=== PATIENT | female | born 1985 | race Caucasian/White ===

== ENCOUNTER 2016-12-13 12:27 | Inpatient (IN) | payer OTHER ==
[~2016-12-13] VITALS: Ht 162.6 cm; Wt 99.0 kg
[2016-12-13] VITALS (20 sets, daily range): BP systolic 103–150; BP diastolic 51–77
[~2016-12-13 12:27] MED LIST: /CELE20CA OR; ACET50TA PO; COLA100C2 OR; IBUP80TA PO; PERC5TAB8 OR; PRENTAB66 PO; VITAPRTA PO; [UNRECOGNIZED DRUG - CODE] PO
[2016-12-13] MEDS ORDERED: LR 1,000 ML IV SCH (13:20)
[2016-12-13] MEDS ORDERED: PENICILLIN G POTASSIUM IV 5 MU in D5W MINI-BAG PLUS 100 ML IV STA (13:20)
[2016-12-13] MEDS ORDERED: LACTATED RINGER'S 1000 ML IV STA (13:20)
[2016-12-13 14:04] LABS: MEAN CORPUSCULAR HEMOGLOBIN 32.1 pg (27.0-33.0); MEAN CORPUSCULAR HGB CONC 34.2 g/dl (32.0-36.5); WHITE BLOOD COUNT 20.2 K/mm3 (4.0-10.0)
--- NOTE | 2016-12-13 14:43 | HPEPDOC ---
Obstetrical History & Physical General Date of Admission Dec 13, 2016 at 13:17 History of Present Illness Patient is a 31-year-old female who is a at 36 weeks and 1 day gestation with an DARREL of 01/09/2017 based off of a first trimester ultrasound. [facility]. Her has been complicated with an incompetent cervix. Patient received a prophylactic cerclage at 14 weeks gestation. She has a history of a delivery at 21 weeks 6 days. Patient has also been taking Maza IM injections weekly. She presents to labor and delivery today with complaints of leaking of fluid that started at 9 AM. Reports that the fluid is clear. She denies vaginal bleeding or contractions. Reports active movement. Chief Complaint: Rupture of membranes Information Provided By: Patient Age: 31 : 7 Term: 2 Pre-term: 1 Abortions: 3 Livin Care Care: Good Care Dating Final EDC: Jan 09, 2017 Final EDC by: 1st trimester (US) EGA at Admission: 36.1 Antepartum Course Diagnos(e)s cervical insufficiency, smoker Height (inches): 64 Pre- weight (lbs.): 192 Admission Weight (lbs.): 218 Change in Weight (lbs.): 26 Past Medical History Past Obstetrical History #1: Past Obstetrical History: Multigravida Gestation: 40 Type of Delivery: Spontaneous Vaginal Del. (October 2006: Weighing 7 lbs. 6 oz.) Sex of Infant: Female Complications: No (10/13) Past Obstetrical History #2: Gestation: 39.4 Type of Delivery: Spontaneous Vaginal Del. (March 2015, 8 lbs. 15 oz.) Sex of : Male Complications: No (cerclage placed) Past Obstetrical History #3: Gestation: 21.6 Type of Delivery: Spontaneous Vaginal Del. Complications: Yes (July 2013 weighing 1 lb. 6 oz., incompetent cervix. 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 Past Medical History Surgical History: Dilation and curettage, Gallbladder, Other (cerclage) Family History Significant Family History: Diabetes, Hypertension (father) Social History Marital Status: Family situation: Spouse/partner home Psychosocial History: No pertinent psych hx * Smoker: current smoker Alcohol: denies Drugs: denies Abuse Violence Screening Have you been hit/kicked/slapp: No Have you been sexually assault: No Allergies Coded Allergies: No Known Allergies (Verified , 10/13/06) Medications Scheduled Multivit/Min/Pren/Fol Ac/Iron ( Rx) 1 Tab Tab 1 TAB PO DAILY NUTRITIONAL SUPPORT Scheduled PRN Acetaminophen (Mapap) 500 Mg Tab 1,000 MG PO Q6HP PRN PRN PAIN Physical Examination Physical Examination GENERAL: Alert and oriented times three. BREAST: . ABDOMEN: Gravid and non-tender to touch. FETUS: Is vertex (VTX) by sterile vaginal examination (SVE), fetus is vertex ( VTX) by Tyrell. HEART RATE: Regular rate and rhythm. LUNGS: Clear to auscultation (CTA). EXTREMITIES: No edema. No clonus. Deep tendon reflexes (DTRs) + 2. Vital Signs/I&O Vital Signs Label Value Date Time Patient Temperature 97.7 degrees F 12/13/16 1242 Pulse 108 12/13/16 1242 Blood Pressure Assessment 120/73 (89) 12/13/16 1242 Source Automatic Cuff (NIBP) Respiratory Rate 18 bpm 12/13/16 1242 Laboratory Data 24H LABS Laboratory Tests 2 12/13/16 13:28: Serology Scanned Report Hepatitis B Testing CBC/BMP Item Value Date Time White Blood Count 20.2 K/mm3 H 12/13/16 1353 Hemoglobin 12.2 g/dl 12/13/16 1353 Hematocrit 35.8 % L 12/13/16 1353 Platelet Count 335 k/mm3 12/13/16 1353 Pertinent Laboratoy Data Blood Type: A- RBC Antibody Screen: Negative HIV: Negative Hepatitis B: Negative Hepatitis C: Negative Rapid Plasma Reagin: Nonreactive Rubella: Immune Chlamydia/Gonorrhea: Negative Group B Streptococcus: Unknown Quad Screen Test: Declined Glucose Tolerance Test: 120 Anatomy Ultrasound Ultrasound Date: Aug 28, 2016 Placenta Location: Anterior Normal Anatomy: Yes Placenta Previa: No Vaginal Examination Dilation: 3 cm Effacement: 75% Station: -3 Cervical Consistency: Soft Cervical Position: Posterior Presentation: Cephalic presentation Position: Vertex (occiput) (membranes ruptured to a large amount of clear amniotic fluid) Assessment Heart Rate (FHR): 135 Variability: Moderate Accelerations: Positive Decelerations: None Tocometer Contractions: Yes Frequency: other (occassional) Multi-drug resistant Organism: No history of MDRO Assessment/Plan Assessment IUP at 36 weeks 1 day gestation, rupture of membranes, history of incompetent cervix with prophylactic cerclage placement, smoker, category 1 tracing Plan Admit to labor and delivery. Out of bed as tolerated, regular diet, IV per protocol, labs per order, GBS prophylaxis to be initiated. Dr. Crowe notified of cerclage placement and will be in to remove cerclage. Patient desires epidural for pain management. Consider Pitocin IV to augment labor. Anticipate cervical change and vaginal delivery. TEZ FLORES CNM Dec 13, 2016 13:45
[2016-12-13] MEDS ORDERED: OXYTOCIN DRIP 30 UNITS in APPROPRIATE DILUENT 1 EA IV SCH (15:00)
--- NOTE | 2016-12-13 15:27 | RO ---
DATE OF PROCEDURE: 12/13/2016 Selvni is a 31-year-old female who is approximately 36-1/7 weeks gestation with a history of cervical incompetence who had a cerclage placed approximately 13 weeks gestation. She presented with gross rupture of membranes. After counseling a decision was made for removal of the cerclage. PREOPERATIVE DIAGNOSES: 1. Intrauterine at 36-1/7 weeks gestation with incompetent cervix and a cerclage in place. 2. premature rupture of membrane at 9:00 a.m. clear fluid. POSTOPERATIVE DIAGNOSES: 1. Intrauterine at 36-1/7 weeks gestation with incompetent cervix and a cerclage in place. 2. premature rupture of membrane at 9:00 a.m. clear fluid. PROCEDURE: Cervical cerclage removal. SURGEON: Dr. Oscar Crowe. SEO TEAM LEAD: ANESTHESIA: COMPLICATIONS: None. FINDINGS: 1. Gross rupture of membrane, clear fluid, 2, 1 Prolene suture noted at 12 o'clock position with multiple knots. 3. After removal of the cerclage, the cervix was found to be 3 cm dilated, 60 to 70% effaced, -3, fetus in a vertex position. DESCRIPTION OF PROCEDURE: After obtaining informed consent at the patient's bedside, she was placed in dorsal lithotomy position. A speculum was placed. We then identified the Prolene suture. This was grabbed with a ring forceps and a Lyle scissors was then used to cut the cerclage. The cerclage was removed intact. After removal of the cerclage, the cervix was examined with the above-noted cervical dilatation. The patient tolerated procedure well.
[2016-12-13] MEDS: PENICILLIN G POTASSIUM IV 2.5 MU in D5W 100 ML IV SCH ×2 (17:47→21:59)
--- NOTE | 2016-12-13 22:18 | IPNPDOC ---
Obstetrical Progress Note Date of Service The patient was seen on 12/13/16 at 1940. Progress Note SUBJECTIVE: Patient reports she is comfortable. Reports she is not feeling her contractions. OBJECTIVE: heart rate baseline 135, moderate variability, positive accelerations, no decelerations. Contractions every 2-3 minutes. She is on 10 milliunits of Pitocin. Amniotic fluid still appears clear. VITAL SIGNS: Please see below. ASSESSMENT: IUP at 36 weeks 1 day gestation, PPROM, not in active labor, history of incompetent cervix PLAN: Continue with Pitocin augmentation. Patient may receive epidural when she desires. Anticipate cervical change. Anticipate vaginal delivery. Dr. Crowe aware of plan. VS, I&O, 24H, Fishbone VS, I&O, 24H, Fishbone Vital Signs Label Value Date Time Pulse 90 12/13/161915 Blood Pressure Assessment 122/72 (89) 12/13/161915 Source Automatic Cuff (NIBP) Patient Temperature 99.0 degrees F 12/13/161845 Temperature Source Tympanic 12/13/161845 Pulse 93 12/13/161845 Respiratory Rate 18 bpm 12/13/161845 Blood Pressure Assessment 123/59 (80) 12/13/161845 Source Automatic Cuff (NIBP) Pulse 83 12/13/161945 Blood Pressure Assessment 109/55 (73) 12/13/161945 Source Automatic Cuff (NIBP) TEZ FLORES CNM Dec 13, 2016 22:18
--- NOTE | 2016-12-13 22:45 | IPNPDOC ---
Obstetrical Progress Note Date of Service The patient was seen on 12/13/16 at 22:05. Progress Note SUBJECTIVE: Patient states she feels some of her contractions. Reports that they are not painful. OBJECTIVE: heart rate baseline 135, moderate variability, positive accelerations, variable decelerations noted. Contractions every 2-3 minutes. Pitocin at 16 milliunits. ASSESSMENT: IUP at 36 weeks 1 day gestation, not in active labor, PPROM, category 2 heart rate tracing PLAN: Pitocin turned on 12 milliunits. Patient repositioned to right lateral. It is a category 1 heart rate tracing. Continue to increase Pitocin if category 1 heart rate tracing. TEZ FLORES CNM Dec 13, 2016 22:45
--- NOTE | 2016-12-13 22:48 | IPNPDOC ---
Obstetrical Progress Note Date of Service The patient was seen on 12/13/16 at 22:46. Progress Note SUBJECTIVE: No concerns. OBJECTIVE: heart rate 135, moderate variability, positive accelerations, no decelerations. Contractions every 2-3 minutes. Pitocin at 12 milliunits. ASSESSMENT: IUP at 36 weeks 1 day gestation, PPROM, category 1 heart rate tracing, not in active labor. PLAN: Continue with Pitocin augmentation. Anticipate cervical change. A straight vaginal delivery. TEZ FLORES CNM Dec 13, 2016 22:48
[2016-12-14] VITALS (32 sets, daily range): BP systolic 86–156; BP diastolic 41–89
[2016-12-14] MEDS ORDERED: FENTANYL 2MCG/ML ROPIVACAINE 0.2% NACL 250 ML CADD As Ordered ONE (00:12)
[2016-12-14] MEDS ORDERED: ePHEDrine SULFATE 25 MG/5 ML(5MG/ML) SYRINGE IV PRN (01:00)
[2016-12-14] MEDS ORDERED: EPIDURAL/PCA KEYS XX PRN (01:00)
[2016-12-14] MEDS ORDERED: NALOXONE INJ 0.4 MG/1 ML VIAL (J2310) IV PRN (01:00)
[2016-12-14] MEDS ORDERED: FENTANYL/ROPIVACAINE/NACL CADD 250 ML EPIDURAL SCH (01:00)
[2016-12-14] MEDS ORDERED: LACTATED RINGER'S 1000 ML IV PRN (01:00)
[2016-12-14] MEDS ORDERED: REFRIGERATOR IV KEYS XX PRN (01:00)
[2016-12-14] MEDS ORDERED: diphenhydrAMINE INJ 50MG/ML VIAL (J1200) IV PRN (01:00)
[2016-12-14] MEDS ORDERED: EPIDURAL COMMENT XX SCH (01:00)
[2016-12-14] MEDS ORDERED: ONDANSETRON 4MG/2ML VIAL (J2405) IV PRN (01:00)
[2016-12-14] MEDS: PENICILLIN G POTASSIUM IV 2.5 MU in D5W 100 ML IV SCH (02:04)
--- NOTE | 2016-12-14 04:16 | DNPDOC ---
Delivery Note Delivery Note Patient is a 31-year-old now G 7 P 2233 at 36.2 weeks' gestation who presented to labor and delivery with PPROM. She has a history of incompetent cervix and had a cerclage placed at 13 weeks gestation. The cerclage was removed by Dr. Crowe. See operative note. She obtained an epidural for pain management. Pitocin was used to augment her labor. She progressed to fully dilated at 0229. Patient pushed to a spontaneous vaginal delivery at 0335 to a living male in the ROBERTO position with restitution to ROT. Nuchal cord 1 loose. Shoulders delivered with ease and the corpus immediately followed. Baby placed on maternal abdomen crying and active after stimulation. Cord clamped 2 and cut by followed the baby after 1 minute. Cord gases not obtained but cord blood obtained. Spontaneous delivery of intact placenta with a three-vessel cord by Kitchen mechanism at 0351. Uterine hemostasis achieved by rapid infusion of IV Pitocin and uterine fundal massage. Perineum and vagina inspected and found to intact. EBL 150. Infant's 8/10. Weight 7 lbs. 4 oz, 3298 g. 's name is Gene and is breast-feeding. Mom and baby are stable. TEZ FLORES CNM Dec 14, 2016 04:16
[2016-12-14] MEDS ORDERED: DIBUCAINE 1% OINTMENT 30GM TOP PRN (07:15)
[2016-12-14] MEDS ORDERED: ANUSOL HC CREAM 30GM TOP PRN (07:15)
[2016-12-14] MEDS ORDERED: MEASLES,MUMPS,RUBELLA VACCINE INJ (MMR-II) (90707) SC SCH (07:15)
[2016-12-14] MEDS ORDERED: IBUPROFEN 800 MG TAB PO PRN (07:15)
[2016-12-14] MEDS ORDERED: NICOTINE 14 MG/24 HR TRANSDERMAL TD PRN (07:15)
[2016-12-14] MEDS ORDERED: METHYLERGONOVINE MALEATE 0.2 MG TAB PO PRN (07:15)
[2016-12-14] MEDS ORDERED: DOCUSATE SODIUM 100 MG CAP PO PRN (07:15)
[2016-12-14] MEDS ORDERED: ACETAMINOPHEN 500 MG TAB PO PRN (07:15)
[2016-12-14] MEDS ORDERED: RHOGAM 300 MCG (1500 IU) INJ (J2790) IM SCH (07:15)
[2016-12-14] MEDS: PRENATAL VITAMIN TAB PO SCH (09:00)
[2016-12-15 06:25] VITALS: BP 129/69
[2016-12-15] MEDS ORDERED: ADACEL/BOOSTRIX VACCINE (DIPHTH/PERTUSS/ACELL/TETANUS)0.5ML SYR (90715) IM ONE (09:00)
[2016-12-15] MEDS ORDERED: INFLUENZA QUADRIVALENT PF VACCINE 0.5ML SYRINGE/VIAL (90686) IM ONE (09:00)
[2016-12-15] MEDS: PRENATAL VITAMIN TAB PO SCH (09:00)
[2016-12-15 18:24] VITALS: BP 137/70
[2016-12-16 06:11] VITALS: BP 134/75
[2016-12-16] MEDS: PRENATAL VITAMIN TAB PO SCH (09:00)
[2016-12-16] MEDS ORDERED: IBUP-1114 PO (11:43)
[2016-12-16] MEDS ORDERED: NICO14DI3 TD (11:44)
== END 2016-12-16 12:15 | disposition home or self-care (01) | DRG 560 ==
LOC: M LDO 12:27 → M LDI 13:17 → M OBS 12-14 05:44
PROVIDERS: ADMIT Obstetrics & Gynecology; ATTEND Obstetrics & Gynecology
PROC: 0UCC7ZZ Extirpation of Matter from Cervix, Via Natural or Artificial Opening (ICD-10-PCS; 2016-12-13)
PROC: 10E0XZZ Delivery of Products of Conception, External Approach (ICD-10-PCS; principal; 2016-12-14)
DX: O42.013 Preterm premature rupture of membranes, onset of labor within 24 hours of rupture, third trimester (principal); O34.33 Maternal care for cervical incompetence, third trimester; Z37.0 Single live birth; Z3A.36 36 weeks gestation of pregnancy; F17.200 Nicotine dependence, unspecified, uncomplicated; O99.334 Smoking (tobacco) complicating childbirth; O69.82X0 Labor and delivery complicated by other cord entanglement, without compression, not applicable or unspecified

== ENCOUNTER → 2018-04-08 | Outpatient (CLI) | payer OTHER ==
[2018-04-08 18:45] LABS: BASO # 0.1 10^3/uL (0.0-0.2); BASO % 0.5 % (0.0-1.0); EOS # 0.3 10^3/uL (0.0-0.50); EOS % 1.6 % (0.0-3.0); HEMATOCRIT 39.8 % (36.0-47.0); HEMOGLOBIN 13.6 g/dl (12.0-15.5); IMMATURE GRANULOCYTE % 0.5 % (0-3.0); LYMPH # 3.1 10^3/uL (1.5-4.5); LYMPH % 18.6 % (24.0-44.0); MEAN CORPUSCULAR HEMOGLOBIN 32.2 pg (27.0-33.0); MEAN CORPUSCULAR HGB CONC 34.2 g/dl (32.0-36.5); MEAN CORPUSCULAR VOLUME 94.1 fl (80.0-96.0); NEUTROPHILS # 12.2 10^3/uL (1.8-7.7); NEUTROPHILS % 72.8 % (36.0-66.0); PLATELET COUNT, AUTOMATED 236 10^3/uL (150-450); RED BLOOD COUNT 4.23 10^6/uL (4.00-5.40); RED CELL DISTRIBUTION WIDTH 13.6 % (11.5-14.5); WHITE BLOOD COUNT 16.8 10^3/uL (4.0-10.0)
[2018-04-08 19:40] LABS: CHLAMYDIA DNA AMPLIFICATION NEGATIVE (NEGATIVE); GC DNA AMPLIFICATION NEGATIVE (NEGATIVE)
[2018-04-11 11:08] LABS: RUBELLA IgG QUALITATIVE IMMUNE (IMMUNE)
[2018-04-11 11:10] LABS: HBsAg Prenatal NEGATIVE (NEGATIVE)
[2018-04-11 11:37] LABS: HEPATITIS C VIRUS ABY INDEX < 0.0 INDEX (<0.8)
[2018-04-11 11:37] LABS: HIV 1&2 SCREEN CENTAUR NEGATIVE (NEGATIVE)
== END ==
LOC: M SMT 11:29
DX: Z36.89 Encounter for other specified antenatal screening (principal); Z3A.09 9 weeks gestation of pregnancy
CPT/HCPCS: 86762

== ENCOUNTER → 2018-04-12 | Outpatient (REF) | payer OTHER | LOC: M LAB REF 17:01 | DX: Z34.81 Encounter for supervision of other normal pregnancy, first trimester (principal) ==

== ENCOUNTER → 2018-04-19 | Day surgery (SDC) | payer OTHER ==
[~2018-04-19] MED LIST changes: -/CELE20CA OR; -ACET50TA PO; +BUPIVACAINE/DEXTROSE 0.75% 2 ML AMP As Ordered; +CHLOROPROCAINE 2 % INJ PRES.FREE 20 ML VIAL (J2400) As Ordered; -COLA100C2 OR; -IBUP80TA PO; +LR 1,000 ML IV; +ONDANSETRON 4MG/2ML VIAL (J2405) As Ordered; +ONDANSETRON 4MG/2ML VIAL (J2405) IV; -PERC5TAB8 OR; -PRENTAB66 PO; -VITAPRTA PO; -[UNRECOGNIZED DRUG - CODE] PO; +fentaNYL 100 MCG/2 ML INJECTION (J3010) As Ordered
[2018-04-19] MEDS: LR 1,000 ML IV (11:36)
[2018-04-19 11:46] LABS: HEMATOCRIT 37.4 % (36.0-47.0); HEMOGLOBIN 13.1 g/dl (12.0-15.5); MEAN CORPUSCULAR HEMOGLOBIN 32.2 pg (27.0-33.0); MEAN CORPUSCULAR VOLUME 91.9 fl (80.0-96.0); PLATELET COUNT, AUTOMATED 229 10^3/uL (150-450); RED BLOOD COUNT 4.07 10^6/uL (4.00-5.40); RED CELL DISTRIBUTION WIDTH 13.4 % (11.5-14.5); WHITE BLOOD COUNT 17.7 10^3/uL (4.0-10.0)
[2018-04-19] MEDS: ceFAZolin 2 GM/D5W 50 ML IV BAG (J0690 PER 500MG) As Ordered (13:21)
== END | disposition home or self-care (01) ==
LOC: M SDC 11:11
DX: O34.32 Maternal care for cervical incompetence, second trimester (principal); Z3A.14 14 weeks gestation of pregnancy
CPT/HCPCS: 59320

== ENCOUNTER → 2018-05-18 | Outpatient (CLI) | payer OTHER | LOC: M RAD 10:25 | DX: Z34.82 Encounter for supervision of other normal pregnancy, second trimester (principal); Z36.89 Encounter for other specified antenatal screening; Z3A.18 18 weeks gestation of pregnancy | CPT/HCPCS: 76811 ==

== ENCOUNTER → 2018-08-22 | Outpatient (CLI) | payer OTHER ==
[2018-08-22 13:15] LABS: HEMATOCRIT 35.5 % (36.0-47.0); MEAN CORPUSCULAR HEMOGLOBIN 32.7 pg (27.0-33.0); MEAN CORPUSCULAR HGB CONC 33.8 g/dl (32.0-36.5); MEAN CORPUSCULAR VOLUME 96.7 fl (80.0-96.0); PLATELET COUNT, AUTOMATED 185 10^3/uL (150-450); RED BLOOD COUNT 3.67 10^6/uL (4.00-5.40); RED CELL DISTRIBUTION WIDTH 13.6 % (11.5-14.5); WHITE BLOOD COUNT 15.6 10^3/uL (4.0-10.0)
[2018-08-22 13:56] LABS: GLUCOSE CHALLENGE TEST 1 HOUR 134 MG/DL (LESS THAN 140)
[2018-08-23 08:45] LABS: TYPE AND SCREEN 1 1
== END ==
LOC: M SMT 10:03
DX: Z34.82 Encounter for supervision of other normal pregnancy, second trimester (principal)
CPT/HCPCS: 82950

== ENCOUNTER → 2018-09-26 | Outpatient (REF) | payer OTHER | LOC: M LAB REF 17:12 | DX: Z34.83 Encounter for supervision of other normal pregnancy, third trimester (principal); Z3A.00 Weeks of gestation of pregnancy not specified | CPT/HCPCS: 87186 ==

== ENCOUNTER 2018-10-06 17:42 | Inpatient (IN) | payer OTHER ==
[2018-10-06] MEDS ORDERED: LACTATED RINGER'S 1000 ML IV (18:43)
[2018-10-06] MEDS ORDERED: LR 1,000 ML IV ×2 (18:43)
[2018-10-06] MEDS: PENICILLIN G POTASSIUM IV 5 MU in D5W MINI-BAG PLUS 100 ML IV (19:10)
[2018-10-06 19:48] LABS: HEMATOCRIT 38.6 % (36.0-47.0); MEAN CORPUSCULAR HEMOGLOBIN 32.2 pg (27.0-33.0); MEAN CORPUSCULAR HGB CONC 33.7 g/dl (32.0-36.5); MEAN CORPUSCULAR VOLUME 95.5 fl (80.0-96.0); PLATELET COUNT, AUTOMATED 205 10^3/uL (150-450); RED BLOOD COUNT 4.04 10^6/uL (4.00-5.40); RED CELL DISTRIBUTION WIDTH 13.7 % (11.5-14.5); WHITE BLOOD COUNT 17.8 10^3/uL (4.0-10.0)
[2018-10-07] MEDS: OXYTOCIN DRIP 30 UNITS in APPROPRIATE DILUENT 1 EA IV ×2 (01:08→02:50)
[2018-10-07] MEDS: PENICILLIN G POTASSIUM IV 2.5 MU in APPROPRIATE DILUENT 1 EA IV (01:27)
[2018-10-07] MEDS ORDERED: FENTANYL 2MCG/ML ROPIVACAINE 0.2% IN 0.9% NACL 200ML IVBAG As Ordered (01:48)
[2018-10-07] MEDS ORDERED: diphenhydrAMINE INJ 50MG/ML VIAL (J1200) IV (02:00)
[2018-10-07] MEDS ORDERED: NALOXONE INJ 0.4 MG/1 ML VIAL (J2310) IV (02:00)
[2018-10-07] MEDS ORDERED: FENTANYL/ROPIVACAINE/NACL BAG 200 ML EPIDURAL (02:00)
[2018-10-07] MEDS ORDERED: LACTATED RINGER'S 1000 ML IV (02:00)
[2018-10-07] MEDS ORDERED: EPIDURAL COMMENT XX (02:00)
[2018-10-07] MEDS ORDERED: REFRIGERATOR IV KEYS XX (02:00)
[2018-10-07] MEDS ORDERED: ONDANSETRON 4MG/2ML VIAL (J2405) IV (02:00)
[2018-10-07] MEDS ORDERED: ePHEDrine SULFATE 25 MG/5 ML(5MG/ML) SYRINGE IV (02:00)
[2018-10-07] MEDS ORDERED: EPIDURAL/PCA KEYS XX (02:00)
[2018-10-07] MEDS ORDERED: METHYLERGONOVINE MALEATE 0.2 MG TAB PO (04:15)
[2018-10-07] MEDS ORDERED: DOCUSATE SODIUM 100 MG CAP PO (04:15)
[2018-10-07] MEDS ORDERED: IBUPROFEN 800 MG TAB PO (04:15)
[2018-10-07] MEDS ORDERED: MEASLES,MUMPS,RUBELLA VACCINE INJ (MMR-II) (90707) SC (04:15)
[2018-10-07] MEDS ORDERED: ACETAMINOPHEN 500 MG TAB PO (04:15)
[2018-10-07] MEDS ORDERED: RHOGAM 300 MCG (1500 IU) INJ (J2790) IM (04:15)
[2018-10-07] MEDS ORDERED: DIBUCAINE 1% OINTMENT 30GM TOP (04:15)
[2018-10-07] MEDS: AMPICILLIN SOD/SULBACTAM SOD 3 GM in D5W MINI-BAG PLUS 100 ML IV (04:55)
[2018-10-07] MEDS: SLF 3 ML SYR IV (07:30)
[2018-10-07] MEDS: PRENATAL VITAMINS CHEWABLE TABLET PO (09:29)
[2018-10-07] MEDS ORDERED: SLF 3 ML SYR IV (14:00)
[2018-10-08] MEDS: PRENATAL VITAMINS CHEWABLE TABLET PO (09:39)
== END 2018-10-08 12:05 | disposition home or self-care (01) | DRG 541 ==
LOC: M LDO 17:42 → M LDI 18:23 → M OBS 10-07 09:30
PROVIDERS: Advanced Practice Midwife
PROC: 10E0XZZ Delivery of Products of Conception, External Approach (ICD-10-PCS; principal; 2018-10-07)
PROC: 10D17Z9 Manual Extraction of Products of Conception, Retained, Via Natural or Artificial Opening (ICD-10-PCS; 2018-10-07)
DX: O42.02 Full-term premature rupture of membranes, onset of labor within 24 hours of rupture (principal); O99.820 Streptococcus B carrier state complicating pregnancy; Z3A.38 38 weeks gestation of pregnancy; Z37.0 Single live birth; O73.0 Retained placenta without hemorrhage

== ENCOUNTER → 2018-12-30 | Outpatient (REF) | payer OTHER ==
[~2018-12-30] MED LIST changes: +/CELE20CA OR; -BUPIVACAINE/DEXTROSE 0.75% 2 ML AMP As Ordered; -CHLOROPROCAINE 2 % INJ PRES.FREE 20 ML VIAL (J2400) As Ordered; +CLEO300C2 PO; +COLA100C2 OR; +IBUP-1114 PO; +IBUP80TA PO; -LR 1,000 ML IV; +MAPA500T2 PO; +NICO14DI3 TD; -ONDANSETRON 4MG/2ML VIAL (J2405) As Ordered; -ONDANSETRON 4MG/2ML VIAL (J2405) IV; +PERC5TAB8 OR; +PRENTAB66 PO; +VITAPRTA PO; +[UNRECOGNIZED DRUG - CODE] PO; -fentaNYL 100 MCG/2 ML INJECTION (J3010) As Ordered
[2019-01-03 16:39] LABS: HPV HYBRID CAPTURE II Negative (Negative)
== END ==
LOC: M LAB REF 17:13
PROVIDERS: ATTEND Advanced Practice Midwife
DX: Z12.4 Encounter for screening for malignant neoplasm of cervix (principal); Z11.51 Encounter for screening for human papillomavirus (HPV)

== ENCOUNTER → 2019-11-29 | Outpatient (REF) | payer OTHER ==
[~2019-11-29] MED LIST changes: -/CELE20CA OR; +CELE1CAP4 OR
[2019-11-29 17:57] LABS: APPEARANCE, URINE HAZY (CLEAR); BACTERIA, URINE AUTO 1+ (NEGATIVE); BILIRUBIN, URINE AUTO NEGATIVE (NEGATIVE); BLOOD, URINE BLOOD 1+ (NEGATIVE); COLOR, URINE YELLOW (YELLOW); GLUCOSE, URINE (UA) AUTO NEGATIVE (NEGATIVE); KETONE, URINE AUTO NEGATIVE (NEGATIVE); LEUKOCYTE ESTERASE, URINE AUTO NEGATIVE (NEGATIVE); MUCUS, URINE SMALL (NEGATIVE); NITRITE, URINE AUTO NEGATIVE (NEGATIVE); PROTEIN, URINE AUTO 1+ mg/dL (NEGATIVE); RBC, URINE AUTO 6 /HPF (0-3); SPECIFIC GRAVITY URINE AUTO 1.014 (1.002-1.035); SQUAMOUS EPITHELIAL CELL UR AU 2 /HPF (0-6); WBC, URINE AUTO 1 /HPF (0-3)
== END ==
LOC: M LAB REF 16:38
PROVIDERS: ATTEND Physician Assistant Medical
DX: N39.0 Urinary tract infection, site not specified (principal)

== ENCOUNTER 2020-10-07 20:54 | Emergency (ER) | payer OTHER ==
[~2020-10-07] VITALS: Ht 162.6 cm; Wt 93.1 kg
[2020-10-07 20:54] VITALS: BP 128/85
[2020-10-07] MEDS ORDERED: AMPICILLIN SOD/SULBACTAM SOD 3 GM in D5W MINI-BAG PLUS 100 ML IV ONE (22:00)
[2020-10-07] MEDS ORDERED: dexameTHASONE 20MG/5ML VIAL (J1100 PER 1MG) IV ONE (22:00)
[2020-10-07] MEDS ORDERED: NS 1,000 ML IV ONE (22:00)
[2020-10-07 22:52] LABS: HEMATOCRIT 44.9 % (36.0-47.0); HEMOGLOBIN 14.8 g/dl (12.0-15.5); MEAN CORPUSCULAR HEMOGLOBIN 30.1 pg (27.0-33.0); MEAN CORPUSCULAR VOLUME 91.3 fl (80.0-96.0); PLATELET COUNT, AUTOMATED 255 10^3/uL (150-450); RED BLOOD COUNT 4.92 10^6/uL (4.00-5.40); WHITE BLOOD COUNT 18.4 10^3/uL (4.0-10.0)
[2020-10-07 23:24] LABS: ATYPICAL LYMPH 5 % (0-5); EOSINOPHILS 2 % (0-3); LYMPHOCYTES 20 % (16-44); MONOCYTES 3 % (0-5); NEUTROPHILS 70 % (28-66); PLATELET ESTIMATE NORMAL (NORMAL)
[2020-10-07 23:25] LABS: ERYTHROCYTE SEDIMENTATION RATE 6 mm/hr (0-20)
[2020-10-07 23:32] LABS: ALBUMIN 3.9 GM/DL (3.2-5.2); ALT/SGPT 19 U/L (12-78); BILIRUBIN,DIRECT 0.1 MG/DL (0.0-0.2); BILIRUBIN,TOTAL 0.5 MG/DL (0.2-1.0); BLOOD UREA NITROGEN 6 MG/DL (7-18); C REACTIVE PROTEIN QUANTITATIV 1.59 MG/DL (0.00-0.30); CALCIUM LEVEL 8.4 MG/DL (8.5-10.1); CARBON DIOXIDE LEVEL 23 MEQ/L (21-32); CHLORIDE LEVEL 106 MEQ/L (98-107); CREATININE FOR GFR 0.69 MG/DL (0.55-1.30); GLOMERULAR FILTRATION RATE > 60.0 (>60); GLUCOSE, FASTING 75 MG/DL (70-100); POTASSIUM SERUM 4.2 MEQ/L (3.5-5.1); SODIUM LEVEL 135 MEQ/L (136-145); TOTAL PROTEIN 7.2 GM/DL (6.4-8.2)
[2020-10-07 23:36] LABS: HCG, SERUM QUALITATIVE NEGATIVE (NEGATIVE)
[2020-10-07] MEDS ORDERED: ISOVUE-370 76% 100ML VIAL As Ordered ONE (23:41)
--- NOTE | 2020-10-08 00:14 | REPVR ---
PROCEDURE INFORMATION: Exam: CT Neck With Contrast Exam date and time: 10/07/2020 11:54 PM Age: 34 years old Clinical indication: Mass, lump, or swelling in neck; Neck pain; Additional info: Swelling/pain right mastoid into right neck TECHNIQUE: Imaging protocol: Computed tomography images of the neck with intravenous contrast. Radiation optimization: All CT scans at this facility use at least one of these dose optimization techniques: automated exposure control; mA and/or kV adjustment per patient size (includes targeted exams where dose is matched to clinical indication); or iterative reconstruction. Contrast material: ISOVUE 370; Contrast volume: 75 ml; Contrast route: INTRAVENOUS (IV); COMPARISON: No relevant prior studies available. FINDINGS: Mastoid air cells: Small amount of fluid in the mastoid air cells, greater on the right. Auditory system: There is soft tissue edema in the right external ear extending into the right external auditory canal. Small amount of fluid in the left middle ear. Nasopharynx: Unremarkable. Oropharynx: Unremarkable. No significant tonsillar enlargement. Hypopharynx: Unremarkable. Larynx: Unremarkable. Normal epiglottis. Retropharyngeal space: Unremarkable. Submandibular/Parotid glands: Normal. Glands are normal in size. Thyroid: Normal. No enlarged or calcified nodules. Lymph nodes: Mildly enlarged cervical lymph nodes are noted. Trachea: Visualized trachea is unremarkable. Lungs: Unremarkable as visualized. Bones/joints: Unremarkable. No acute fracture. Soft tissues: No neck mass or abscess. IMPRESSION: 1. Right otitis externa with soft tissue swelling in the right external ear and external auditory canal. Possible right otitis media with a small amount of fluid in the right middle ear. 2. Small amount of fluid in the mastoid air cells. No destructive changes to suggest mastoiditis. Electronically signed by: Luis Warner On 10/08/2020 00:14:49 AM
[2020-10-08] MEDS ORDERED: HYDR-3713 PO (01:30)
[2020-10-08] MEDS ORDERED: CEFD300CAP PO (01:30)
[2020-10-08] MEDS ORDERED: CIPROFLOXACIN HC OTIC SUSPENSION AD ONE (01:30)
[2020-10-08] MEDS ORDERED: PRED20TA PO (01:30)
[2020-10-08] MEDS ORDERED: CIPRHCOTIC AD (01:30)
== END 2020-10-08 01:55 | disposition home or self-care (01) ==
LOC: M ED 20:54
DX: H66.013 Acute suppurative otitis media with spontaneous rupture of ear drum, bilateral (principal); H60.311 Diffuse otitis externa, right ear; R50.9 Fever, unspecified; J02.9 Acute pharyngitis, unspecified; Z79.899 Other long term (current) drug therapy
CPT/HCPCS: 70491; 80048; 80076; 83605; 84703; 85025; 85652; 86140; 87040; 96365; 96366; 96375; 99283; J1100; Q9967

== ENCOUNTER 2023-02-03 12:02 | Emergency (ER) | payer OTHER ==
[~2023-02-03] VITALS: Ht 162.6 cm; Wt 80.4 kg
[~2023-02-03 12:02] MED LIST changes: +CEFD300CAP PO; +CIPRHCOTIC AD; +HYDR-3713 PO; +PRED20TA PO
[2023-02-03 13:26] LABS: BASO # 0.1 10^3/uL (0.0-0.2); BASO % 0.9 % (0.0-1.0); EOS # 0.3 10^3/uL (0.0-0.5); EOS % 3.2 % (0.0-3.0); HEMOGLOBIN 15.9 g/dl (12.0-15.5); LYMPH % 37.5 % (24.0-44.0); MEAN CORPUSCULAR HEMOGLOBIN 32.1 pg (27.0-33.0); MEAN CORPUSCULAR HGB CONC 33.8 g/dl (32.0-36.5); MEAN CORPUSCULAR VOLUME 94.8 fl (80.0-96.0); MONO # 0.9 10^3/uL (0.0-0.8); MONO % 11.7 % (2.0-8.0); NEUTROPHILS # 3.7 10^3/uL (1.5-8.5); NEUTROPHILS % 46.6 % (36.0-66.0); PLATELET COUNT, AUTOMATED 246 10^3/uL (150-450); RED BLOOD COUNT 4.96 10^6/uL (4.00-5.40); WHITE BLOOD COUNT 7.9 10^3/uL (4.0-10.0)
[2023-02-03 13:48] LABS: CPK CREATINE PHOSPHOKINASE 64 U/L (34-145)
[2023-02-03 13:49] LABS: BLOOD UREA NITROGEN 7 MG/DL (9-23); CALCIUM LEVEL 9.1 MG/DL (8.5-10.1); CARBON DIOXIDE LEVEL 25 MMOL/L (20-31); CHLORIDE LEVEL 106 MMOL/L (98-107); CK-MB VALUE MASS < 1.0 NG/ML (<3.6); CREATININE FOR GFR 0.56 MG/DL (0.55-1.30); GLOMERULAR FILTRATION RATE > 60.0 (>60); GLUCOSE, FASTING 75 MG/DL (60-100); HCG, SERUM QUALITATIVE NEGATIVE (NEGATIVE); MB/CK RELATIVE INDEX 1.56 (< OR =4); POTASSIUM SERUM 3.8 MMOL/L (3.5-5.1); SODIUM LEVEL 140 MMOL/L (136-145)
[2023-02-03] MEDS ORDERED: CYCL-707 PO (14:25)
[2023-02-03] MEDS ORDERED: NAPR-837 PO (14:25)
[2023-02-03 14:51] VITALS: BP 146/88
== END 2023-02-03 15:07 | disposition home or self-care (01) ==
LOC: M ED 12:02
DX: M62.838 Other muscle spasm (principal); F17.200 Nicotine dependence, unspecified, uncomplicated; Z79.899 Other long term (current) drug therapy

== ENCOUNTER 2023-03-12 09:59 | Emergency (ER) | payer OTHER ==
[~2023-03-12] VITALS: Ht 162.6 cm; Wt 81.3 kg
[~2023-03-12 09:59] MED LIST changes: +CYCL-707 PO; +NAPR-837 PO
[2023-03-12 10:45] LABS: APPEARANCE, URINE CLEAR (CLEAR); BACTERIA, URINE AUTO 1+ (NEGATIVE); BILIRUBIN, URINE AUTO NEGATIVE (NEGATIVE); BLOOD, URINE BLOOD 2+ (NEGATIVE); COLOR, URINE YELLOW (YELLOW); GLUCOSE, URINE (UA) AUTO NEGATIVE (NEGATIVE); KETONE, URINE AUTO NEGATIVE (NEGATIVE); LEUKOCYTE ESTERASE, URINE AUTO TRACE (NEGATIVE); NITRITE, URINE AUTO NEGATIVE (NEGATIVE); PROTEIN, URINE AUTO NEGATIVE (NEGATIVE); RBC, URINE AUTO 4 /HPF (0-3); SPECIFIC GRAVITY URINE AUTO 1.011 (1.002-1.035); SQUAMOUS EPITHELIAL CELL UR AU 4 /HPF (0-6); WBC, URINE AUTO 2 /HPF (0-3)
[2023-03-12 12:07] LABS: BASO # 0.1 10^3/uL (0.0-0.2); BASO % 0.9 % (0.0-1.0); EOS # 0.2 10^3/uL (0.0-0.5); EOS % 1.4 % (0.0-3.0); HEMOGLOBIN 15.7 g/dl (12.0-15.5); LYMPH # 2.2 10^3/uL (1.5-5.0); LYMPH % 20.6 % (24.0-44.0); MEAN CORPUSCULAR HEMOGLOBIN 32.2 pg (27.0-33.0); MEAN CORPUSCULAR HGB CONC 34.1 g/dl (32.0-36.5); MEAN CORPUSCULAR VOLUME 94.3 fl (80.0-96.0); MONO # 0.8 10^3/uL (0.0-0.8); MONO % 7.7 % (2.0-8.0); NEUTROPHILS # 7.3 10^3/uL (1.5-8.5); PLATELET COUNT, AUTOMATED 205 10^3/uL (150-450); RED BLOOD COUNT 4.88 10^6/uL (4.00-5.40); WHITE BLOOD COUNT 10.5 10^3/uL (4.0-10.0)
[2023-03-12 12:34] LABS: BILIRUBIN,DIRECT 0.4 MG/DL (<0.4); BILIRUBIN,TOTAL 0.9 MG/DL (0.3-1.2); TOTAL PROTEIN 6.8 G/DL (5.7-8.2)
[2023-03-12] MEDS ORDERED: ISOVUE-370 76% 100ML VIAL As Ordered ONE (12:39)
[2023-03-12] MEDS ORDERED: ONDANSETRON 4MG 2ML VIAL IV ONE (13:40)
[2023-03-12] MEDS ORDERED: cefTRIAXone SOD 1 GM in D5W MINI-BAG PLUS 50 ML IV ONE (14:45)
[2023-03-12 14:50] VITALS: BP 121/73
[2023-03-12] MEDS ORDERED: LIDOCAINE 1% SDV 5ML VIAL DILUENT ONE (14:50)
[2023-03-12] MEDS ORDERED: cefTRIAXone SOD 1GM VIAL IM ONE (14:50)
[2023-03-12] MEDS ORDERED: METR-265 PO (14:52)
[2023-03-12] MEDS ORDERED: ONDA4TAB6 PO (14:52)
[2023-03-12] MEDS ORDERED: DOXY-443 PO (14:52)
== END 2023-03-12 15:10 | disposition home or self-care (01) ==
LOC: M ED 09:59
DX: R10.2 Pelvic and perineal pain (principal); N71.9 Inflammatory disease of uterus, unspecified; F41.9 Anxiety disorder, unspecified; F17.200 Nicotine dependence, unspecified, uncomplicated; Z87.442 Personal history of urinary calculi; Z79.83 Long term (current) use of bisphosphonates; Z79.899 Other long term (current) drug therapy
CPT/HCPCS: 74177; 76830; 76856; 80047; 80076; 81001; 83690; 84702; 85025; 93976; 96372; 99284; J0696; Q9967